=== PATIENT | female | born 1960 | race Caucasian/White ===

== ENCOUNTER 2022-03-04 09:53 | Outpatient (CLI) | payer BC ==
--- NOTE | 2022-03-04 14:40 | XRAY Report ---
PROCEDURE: Knee 3 View BILAT INDICATIONS: KNEE PX TECHNIQUE: 3 views of the I lateral knee(s) were acquired. COMPARISON: None. FINDINGS: Bones: No acute fractures or dislocation. There is severe bilateral medial femorotibial compartment narrowing. There are large bilateral tricompartmental osteophytes. Soft tissues: No joint effusions. IMPRESSION: Severe bilateral knee osteoarthritis. Reviewed by: Katlyn Andrea MD on 03/04/2022 2:39 PM PST Approved by: Katlyn Andrea MD on 03/04/2022 2:39 PM PST Station ID: [id number]
== END 2022-03-04 09:54 | disposition home or self-care (01) ==
LOC: DI 09:53
PROVIDERS: ATTEND Physician Assistant
DX: M17.0 Bilateral primary osteoarthritis of knee (principal)

== ENCOUNTER 2022-09-12 12:47 | Outpatient (CLI) | payer BC, OTHER ==
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
[2022-09-12 13:34] VITALS: BP 141/72
== END 2022-09-12 12:48 | disposition home or self-care (01) ==
LOC: SC 12:47
PROVIDERS: ATTEND Nurse Practitioner Family
DX: G47.33 Obstructive sleep apnea (adult) (pediatric) (principal); E66.01 Morbid (severe) obesity due to excess calories; Z68.43 Body mass index [BMI] 50.0-59.9, adult
CPT/HCPCS: 99203; 99212

== ENCOUNTER 2022-10-16 14:27 | Outpatient (CLI) | payer OTHER | END 2022-10-16 14:28 | disposition home or self-care (01) | LOC: SC 14:27 | PROVIDERS: ATTEND Nurse Practitioner Family | DX: G47.33 Obstructive sleep apnea (adult) (pediatric) (principal); R09.02 Hypoxemia; E66.01 Morbid (severe) obesity due to excess calories; Z68.43 Body mass index [BMI] 50.0-59.9, adult | CPT/HCPCS: 95806 ==

== ENCOUNTER 2022-10-30 10:55 | Outpatient (CLI) | payer OTHER ==
--- NOTE | 2022-10-30 11:14 | Sleep Patient Instructions ---
Sleep Center Visit Summary - Patient Visit Information Reason for Visit: Sleep Study followup - Patient Instructions Instructions Attached: CPAP Dc, CPAP Additional Instructions: You are being started on CPAP therapy with pressure setting at 5-15 cmH2O. You will need to call the sleep care office to set up your follow up once you have your APAP machine and we will schedule a visit to check compliance and response to therapy at that time. You may call the office with any concerns about pressure feeling too low or too much for adjustment, if needed. You should contact DME for any questions or concerns about mask or equipment. Please call to make a follow up in the sleep care office one month after obtaining new device. - Clinic Information Contact: [facility] [address] [place] [address] [email or web address] T: [phone]
--- NOTE | 2022-10-30 11:18 | SLEEP CARE CONSULTATION ---
Information from patient questionnaire entered by Sol Corcoran. I have reviewed and concur with the information entered by Sol Corcoran. This document represents the service I personally performed and the decisions made by me, Crystal Robert ARNP. History of Present Illness Service Date and Time: 10/30/2022 1055 Initial [place] Sleepiness Scale score: 22 (09/12/2022) Current [place] Sleepiness Scale score: 20 (10/30/22) Additional HPI information: CORI MICHEL returns for follow up and results of the recently performed home sleep study. HST showed severe obstructive sleep apnea with an average AHI of 46.1 and albert oxygen saturation of 69%. I explained the pathophysiology behind obstructive sleep apnea. We then spent quite a bit of time discussing different treatment options. For mild obstructive sleep apnea, surgery and oral appliance are alternatives to nasal CPAP therapy but in moderate or severe cases, nasal CPAP is the most effective and reliable treatment. I reviewed the impact of weight changes on sleep apnea and strongly recommended losing weight. After some discussion, the patient opted to go with the nasal CPAP therapy. Nasal autoCPAP set at 5-15 cmH20 will be ordered with rationale explained. A manual titration study will be ordered if unable to find optimal pressure with office adjustments. I explained how CPAP machine works and what to expect when using the machine. Using CPAP every night in order to get used to it was emphasized. Patient advised to put CPAP mask on before getting into bed so as not to fall asleep without CPAP. To assist acclimation to CPAP use, it could also be used for a short time during day while reading or watching TV. The patient was instructed to call the CPAP supplier to discuss any mechanical problem that may occur. If the mask given is uncomfortable or is difficult to keep on through the night even with adjustment, contact the CPAP supplier as many will replace with another mask style if notified before 30 days. If snoring or perceives is not getting enough air or too much air from the machine, notify this office. Patient does not drink alcohol. Patient was cautioned about risks of drowsy driving until sleepiness symptoms resolve. Sleep Study - Results Type of Sleep Study: Home sleep study (COMPLETED 10/17/22) Prior sleep studies: Yes (2015 [employer]) Polysomnography/Home Sleep Study results: Physician Impression: The quality of the study is good. The length of the study is adequate (> 240 minutes). Please also see the tabulated and graphic data. 1. Obstructive Sleep Apnea-Hypopnea (ICD-10 G47.33), severe, with an AHI of 46.1/hr and albert SaO2 of 69%. During the study, the patient had 214 apneas (213 obstructive, 1 central, 0 mixed) and 54 hypopneas. The longest episode lasted 80.0 seconds. The respiratory events occurred independently of sleep stage and body position (supine AHI was 40.0 and non-supine, 46.26). 2. Hypoxemia (ICD-10 R09.02), moderate, with the lowest oxygen saturation of 69 % and 63.7 minutes with SaO2 under 90%. Baseline oxygen saturation was normal (Average oxygen saturation was 92%). 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 Obstructive Sleep Apnea-Hypopnea Syndrome, severe, with lowest oxygen saturation of 69%. Obviously this is the cause of the patients symptoms of unrefreshed sleep, and excessive daytime sleepiness. She has a history of very severe obstructive sleep apnea and this has verified the diagnosis. As mentioned above, the patient will be started on nasal autoCPAP therapy with pressure set at 5-15 cmH2O. A manual titration study will be completed if unable to find optimal treatment pressure with office adjustments. Compliance guidelines also reviewed. A copy of compliance guidelines will be given for reference at check out. 2. Hypoxemia, moderate, with a albert oxygen saturation of 69% and 63.7 minutes spent under 90%. Her baseline oxygen saturation was normal with an average oxygen saturation of 92%. 3. Obesity, unspecified. Currently patients BMI is 53.6. Obesity increases the risk of apnea, CPAP pressure requirements and overall health risks especially cardiovascular and diabetes. Thus patient is advised to lose weight. * Nasal auto CPAP therapy, pressure at 5-15 cm H2O. * Attempt to lose weight. * Avoid alcohol consumption near bedtime. * Avoid supine sleep until using CPAP. * The patient is again cautioned about driving until sleepiness completely resolves. * Return one month after CPAP obtained. I will assess response to therapy and compliance at that time. Counseling Topics: Weight loss health impact Visit Type: In Office Time Spent with Patient (minutes): 20 Provider Statement: I spent 100% of the Face to Face Visit with the patient with greater than 50% spent counseling the patient and coordination of care.
[2022-10-30 11:31] VITALS: BP 118/66
== END 2022-10-30 10:56 | disposition home or self-care (01) ==
LOC: SC 10:55
PROVIDERS: ATTEND Nurse Practitioner Family
DX: G47.33 Obstructive sleep apnea (adult) (pediatric) (principal); R09.02 Hypoxemia; E66.01 Morbid (severe) obesity due to excess calories; Z68.43 Body mass index [BMI] 50.0-59.9, adult
CPT/HCPCS: 99212; 99213